=== PATIENT | female | born 2000 | race Caucasian/White ===

== ENCOUNTER 2024-01-19 18:12 | Emergency (ER) | payer OTHER ==
[2024-01-19 18:38] LABS: BASOPHILS ABSOLUTE AUTO 0.03 10^3/uL (0.00-0.10); BASOPHILS PERCENT AUTO 0.5 % (0.0-1.0); EOSINOPHILS ABSOLUTE AUTO 0.12 10^3/uL (0.10-0.30); EOSINOPHILS PERCENT AUTO 1.9 % (1.0-3.0); HEMATOCRIT 41.6 % (37.0-47.0); IMMATURE GRAN ABSOLUTE AUTO 0.01 10^3/uL (0.00-0.50); IMMATURE GRAN PERCENT AUTO 0.2 % (0.0-5.0); LYMPHOCYTES ABSOLUTE AUTO 2.74 10^3/uL (1.00-4.00); LYMPHOCYTES PERCENT AUTO 43.1 % (20.0-40.0); MEAN CORPUSCULAR HEMOGLOBIN 27.7 pg (27.0-31.0); MEAN CORPUSCULAR HGB CONC 33.7 g/dL (32.0-36.0); MEAN CORPUSCULAR VOLUME 82.4 fL (82.0-92.0); MEAN PLATELET VOLUME 9.1 fL (7.4-10.4); MONOCYTES ABSOLUTE AUTO 0.34 10^3/uL (0.10-0.80); MONOCYTES PERCENT AUTO 5.4 % (2.0-8.0); NEUTROPHILS ABSOLUTE AUTO 3.11 10^3/uL (2.50-7.00); NEUTROPHILS PERCENT AUTO 48.9 % (50.0-70.0); PLATELET COUNT,PLT 282 10^3/uL (150-400); RED BLOOD CELL COUNT 5.05 10^6/uL (3.80-5.50); RED CELL DISTRIBUTION WIDTH 12.4 % (11.5-14.5); WHITE BLOOD CELL COUNT,WBC 6.35 10^3/uL (5.00-10.00)
[2024-01-19] MEDS: LORazepam 0.5 MG Tab PO ONE (18:44)
[2024-01-19 18:53] LABS: ALANINE AMINOTRANSFERASE,ALT 25 U/L (14-63); ALBUMIN 4.23 g/dL (3.40-5.00); ALKALINE PHOSPHATASE 60 U/L (46-116); ANION GAP 12.8 mmol/L (5-15); ASPARTATE AMNIOTRANSFERASE,AST 16 U/L (15-37); BILIRUBIN TOTAL 0.3 mg/dL (0.2-1.0); BLOOD UREA NITROGEN,BUN 13 mg/dL (7-18); CALCIUM 9.1 mg/dL (8.7-10.3); CARBON DIOXIDE,CO2 26.8 mmol/L (21.0-32.0); CHLORIDE,CL 103 mmol/L (98-107); CREATININE 0.69 mg/dL (0.51-1.17); EST CRCL DRUG DOSING (CG) 108.56 mL/min; GLUCOSE RANDOM 98 mg/dL (70-140); POTASSIUM,K 3.6 mmol/L (3.5-5.1); PROTEIN TOTAL,TP 7.7 g/dL (6.4-8.2); SODIUM,NA 139 mmol/L (136-145)
[2024-01-19 18:57] LABS: C-REACTIVE PROTEIN < 0.50 mg/dL (0.00-0.50); ESTIMATED GFR 124 mL/min (>=60)
[2024-01-19 19:15] LABS: AMYLASE 59 U/L (25-125); LIPASE 51 U/L (16-77)
[2024-01-19] MEDS: Ondansetron 4 MG/2 ML SDV IVPUSH ONE (19:17)
[2024-01-19] MEDS: Sodium Chloride 0.9% 10 ML Syringe FLUSH PRN (19:17)
[2024-01-19 19:18] LABS: BILIRUBIN,URINE NEGATIVE (NEGATIVE); COLOR,URINE LIGHT YELLOW (YELLOW); GLUCOSE,URINE NEGATIVE (NEGATIVE); KETONES,URINE NEGATIVE (NEGATIVE); LEUKOCYTE ESTERASE,URINE NEGATIVE (NEGATIVE); NITRITE,URINE NEGATIVE (NEGATIVE); OCCULT BLOOD,URINE NEGATIVE (NEGATIVE); PH,URINE 7.5 (5.0-9.0); PROTEIN,URINE NEGATIVE (NEGATIVE); UROBILINOGEN,URINE 0.2 E.U./dL (0.2-1.0)
[2024-01-19 19:19] LABS: APPEARANCE,URINE CLEAR (CLEAR)
[2024-01-19 19:24] LABS: BACTERIA,URINE RARE /HPF (NONE TO FEW); EPITHELIAL CELLS,URINE FEW /LPF; RBC,URINE 0-5 /HPF (0-5); WBC,URINE 0-5 /HPF (0-5)
[2024-01-19] MEDS: HYDROmorphone 1 MG/ML Syringe IVPUSH ONE (19:24)
[2024-01-19] MEDS: Ketorolac 30 MG/ML SDV IVPUSH ONE (19:38)
[2024-01-19] MEDS: Acetaminophen/HYDROcodone 325-5 MG Tab PO ONE (20:30)
[2024-01-20 02:23] VITALS: BP 111/69; PULSE 65
== END 2024-01-19 20:39 | disposition home or self-care (01) ==
LOC: KA.ED 18:12
DX: R07.89 Other chest pain (principal); K59.00 Constipation, unspecified; Z88.0 Allergy status to penicillin; Z79.899 Other long term (current) drug therapy
CPT/HCPCS: 36415; 71045; 74021; 80053; 81001; 82150; 83690; 85025; 86140; 93010; 96374; 96375; 99284; 99285-25; A9270-GY; J1170; J1885; J2405; J3490

== ENCOUNTER 2024-03-14 13:13 | Emergency (ER) | payer OTHER ==
[2024-03-14] MEDS ORDERED: Sodium Chloride 0.9% 10 ML Syringe FLUSH PRN (13:31)
[2024-03-14] MEDS: Sodium Chloride 0.9% 1,000 ML IV ONE (13:37)
[2024-03-14] MEDS: LORazepam 2 MG/ML SDV IVPUSH ONE (13:40)
[2024-03-14 13:45] LABS: BASOPHILS ABSOLUTE AUTO 0.01 10^3/uL (0.00-0.10); BASOPHILS PERCENT AUTO 0.1 % (0.0-1.0); EOSINOPHILS ABSOLUTE AUTO 0.04 10^3/uL (0.10-0.30); EOSINOPHILS PERCENT AUTO 0.5 % (1.0-3.0); HEMATOCRIT 40.7 % (37.0-47.0); HEMOGLOBIN 13.8 g/dL (12.0-16.0); IMMATURE GRAN ABSOLUTE AUTO 0.02 10^3/uL (0.00-0.50); IMMATURE GRAN PERCENT AUTO 0.2 % (0.0-5.0); LYMPHOCYTES ABSOLUTE AUTO 1.12 10^3/uL (1.00-4.00); LYMPHOCYTES PERCENT AUTO 13.4 % (20.0-40.0); MEAN CORPUSCULAR HEMOGLOBIN 27.4 pg (27.0-31.0); MEAN CORPUSCULAR HGB CONC 33.9 g/dL (32.0-36.0); MEAN CORPUSCULAR VOLUME 80.9 fL (82.0-92.0); MEAN PLATELET VOLUME 9.4 fL (7.4-10.4); MONOCYTES ABSOLUTE AUTO 0.25 10^3/uL (0.10-0.80); NEUTROPHILS ABSOLUTE AUTO 6.93 10^3/uL (2.50-7.00); NEUTROPHILS PERCENT AUTO 82.8 % (50.0-70.0); PLATELET COUNT,PLT 248 10^3/uL (150-400); RED BLOOD CELL COUNT 5.03 10^6/uL (3.80-5.50); WHITE BLOOD CELL COUNT,WBC 8.37 10^3/uL (5.00-10.00)
[2024-03-14 14:08] LABS: ALANINE AMINOTRANSFERASE,ALT 77 U/L (14-63); ALBUMIN 3.94 g/dL (3.40-5.00); ALKALINE PHOSPHATASE 75 U/L (46-116); ASPARTATE AMNIOTRANSFERASE,AST 170 U/L (15-37); BILIRUBIN TOTAL 1.1 mg/dL (0.2-1.0); BLOOD UREA NITROGEN,BUN 9 mg/dL (7-18); CALCIUM 9.1 mg/dL (8.7-10.3); CHLORIDE,CL 102 mmol/L (98-107); CREATININE 0.57 mg/dL (0.51-1.17); EST CRCL DRUG DOSING (CG) 131.42 mL/min; GLUCOSE RANDOM 138 mg/dL (70-140); PROTEIN TOTAL,TP 7.3 g/dL (6.4-8.2); SODIUM,NA 137 mmol/L (136-145)
[2024-03-14 14:09] LABS: HCG QUALITATIVE,SERUM NEGATIVE (NEGATIVE)
[2024-03-14 14:11] LABS: ESTIMATED GFR 130 mL/min (>=60)
[2024-03-14] MEDS: Potassium Chloride 20 MEQ Tab.ER PO ONE (14:22)
[2024-03-14 14:25] VITALS: BP 115/78; PULSE 84
== END 2024-03-14 14:45 | disposition home or self-care (01) ==
LOC: KA.ED 13:13
DX: F41.0 Panic disorder [episodic paroxysmal anxiety] (principal); E87.6 Hypokalemia; Z88.0 Allergy status to penicillin; Z86.16 Personal history of COVID-19
CPT/HCPCS: 36415; 71045; 80053; 84484; 84703; 85025; 96361; 96374; 99285-25; A9270-GY; J2060; J7030